=== PATIENT | female | born 1940 | race Caucasian/White ===

== ENCOUNTER 2020-05-20 18:18 | Emergency (ER) | payer OTHER ==
--- NOTE | 2020-05-20 18:58 | RAD REPORT ---
EXAM DESCRIPTION: CT - CTHCSPWOC - 05/20/2020 6:48 pm CLINICAL HISTORY: Trauma, head and neck injury. PAIN COMPARISON: Head Brain Wo Cont dated 09/15/2019 TECHNIQUE: Axial 5 mm thick images of the head were obtained. Axial 2 mm thick images of the cervical spine were obtained with sagittal and coronal reconstruction images generated and reviewed. All CT scans are performed using dose optimization technique as appropriate and may include automated exposure control or mA/KV adjustment according to patient size. FINDINGS: CT HEAD WITHOUT CONTRAST: No acute hemorrhage, hydrocephalus or extra-axial collection is identified.Mild generalized brain atr ophy is present with mild periventricular and deep white matter chronic microvascular ischemic change s.No areas of brain edema or midline shift. The paranasal sinuses and mastoids are clear.Mild vertebral atherosclerosis.The calvarium is intact. CT CERVICAL SPINE WITHOUT CONTRAST: No fracture or subluxation.Moderate midcervical degenerative changes.Mild degenerative levoscoliosis present. Emphysematous upper lung jones. IMPRESSION: No acute intracranial or cervical spine findings.
--- NOTE | 2020-05-20 19:03 | RAD REPORT ---
EXAM DESCRIPTION: RAD - Hip Left 2 View - 05/20/2020 6:42 pm CLINICAL HISTORY: PAIN Fall, pain COMPARISON: No comparisons FINDINGS: Subcapital fracture is seen of the proximal left femur with mild impaction. No dislocation evident.
--- NOTE | 2020-05-20 19:03 | RAD REPORT ---
EXAM DESCRIPTION: RAD - Pelvis - 05/20/2020 6:42 pm CLINICAL HISTORY: TRAUMA Fall, trauma, pain COMPARISON: Hip Left 2 View dated 05/20/2020 FINDINGS: Subcapital fracture is seen of the proximal left femur with mild impaction. No dislocation .
[2020-05-20 19:44] LABS: Absolute Lymphocytes (CBC) 0.5 K/uL (0.7-4.9); Basophils % 0.5 % (0-1.3); Hematocrit 41.1 % (36.0-45.0); Lymphocytes % 3.5 % (15.3-44.8); RBC Red Blood Cell Count 4.49 M/uL (3.86-4.86)
--- NOTE | 2020-05-20 19:46 | EDPHYS ---
Physician Documentation [facility] Name: Elsa Linton Age: 79 yrs Sex: Female : 1940 Arrival Date: 05/20/2020 Time: 18:24 Bed 13 Private MD: ED Physician Walter Proctor HPI: 05/20 18:58 This 79 yrs old Female presents to ER via EMS with complaints of Fall Injury. kb 19:42 Details of fall: The patient fell from an upright position, while walking. Onset: The kb symptoms/episode began/occurred just prior to arrival. Associated injuries: The patient sustained left hip and left quadriceps, decreased range of motion, painful injury. Severity of symptoms: At their worst the symptoms were moderate, in the emergency department the symptoms are unchanged. The patient has not experienced similar symptoms in the past. The patient has not recently seen a physician. Pt states she walked into her closet, turned and got dizzy which caused her to fall onto left side. Reports pain to left hip. Historical: - Allergies: 18:47 No Known Allergies; ca1 - PMHx: 18:47 COPD; ca1 - Immunization history:: Adult Immunizations up to date, Pneumococcal vaccine is up to date, Flu vaccine is up to date. - Social history:: Smoking status: Patient/guardian denies using tobacco, the patient reports quitting approximately 6 years ago. - Immunization history: Last tetanus immunization: unknown. ROS: 18:54 Constitutional: Negative for fever, chills, and weight loss, Cardiovascular: Negative kb for chest pain, palpitations, and edema, Respiratory: Negative for shortness of breath, cough, wheezing, and pleuritic chest pain, Abdomen/GI: Negative for abdominal pain, nausea, vomiting, diarrhea, and constipation, Back: Negative for injury and pain, Skin: Negative for injury, rash, and discoloration. 18:54 MS/extremity: Positive for injury or acute deformity, decreased range of motion, pain, tenderness, of the left hip and left quadriceps. 18:54 Neuro: Positive for dizziness. Exam: 18:55 Constitutional: This is a well developed, well nourished patient who is awake, alert, kb and in no acute distress. Head/Face: Normocephalic, atraumatic. Chest/axilla: Normal chest wall appearance and motion. Nontender with no deformity. No lesions are appreciated. Cardiovascular: Regular rate and rhythm with a normal S1 and S2. No gallops, murmurs, or rubs. Normal PMI, no JVD. No pulse deficits. Respiratory: Lungs have equal breath sounds bilaterally, clear to auscultation and percussion. No rales, rhonchi or wheezes noted. No increased work of breathing, no retractions or nasal flaring. Abdomen/GI: Soft, non-tender, with normal bowel sounds. No distension or tympany. No guarding or rebound. No evidence of tenderness throughout. Skin: Warm, dry with normal turgor. Normal color with no rashes, no lesions, and no evidence of cellulitis. Neuro: Awake and alert, GCS 15, oriented to person, place, time, and situation. Cranial nerves II-XII grossly intact. Motor strength 5/5 in all extremities. Sensory grossly intact. Cerebellar exam normal. Normal gait. 18:55 Musculoskeletal/extremity: Extremities: grossly normal except: noted in the left hip and left quadriceps: decreased ROM, pain, tenderness, ROM: limited passive range of motion due to pain, in the left hip, Circulation is intact in all extremities. Sensation intact. Weight bearing: is unable to bear weight. 19:35 ECG was reviewed by the Attending Physician. kb Vital Signs: 18:25 BP 137 / 79; Pulse 104; Resp 18 S; Temp 98.4(O); Pulse Ox 100% on 6 lpm NC; Weight ca1 36.29 kg (R); Height 5 ft. 0 in. (152.40 cm) (R); Pain 8/10; 19:30 BP 140 / 76; Pulse 105; Resp 20 S; Pulse Ox 100% on 4 lpm NC; ca1 20:08 BP 149 / 76; Pulse 100; Resp 20 S; Pulse Ox 100% on R/A; ca1 20:40 BP 131 / 68; Pulse 102; Resp 20 S; Pulse Ox 100% on 2 lpm NC; ca1 21:54 BP 116 / 73; Pulse 101; Resp 20 S; Pulse Ox 97% on 2 lpm NC; ca1 18:25 Body Mass Index 15.62 (36.29 kg, 152.40 cm) ca1 Rajat Coma Score: 18:25 Eye Response: spontaneous(4). Verbal Response: oriented(5). Motor Response: obeys ca1 commands(6). Total: 15. 21:56 Eye Response: spontaneous(4). Verbal Response: oriented(5). Motor Response: obeys ca1 commands(6). Total: 15. Trauma Score (Adult): 18:25 Eye Response: spontaneous(1); Verbal Response: oriented(1); Motor Response: obeys ca1 commands(2); Systolic BP: > 89 mm Hg(4); Respiratory Rate: 10 to 29 per min(4); [place] Score: 15; Trauma Score: 12 20:00 Eye Response: spontaneous(1); Verbal Response: oriented(1); Motor Response: obeys ca1 commands(2); Systolic BP: > 89 mm Hg(4); Respiratory Rate: 10 to 29 per min(4); [place] Score: 15; Trauma Score: 12 MDM: 18:33 Patient medically screened. kb 18:53 Data reviewed: vital signs, nurses notes. Data interpreted: Pulse oximetry: on room air kb is 100 %. Interpretation: normal. Counseling: I had a detailed discussion with the patient and/or guardian regarding: the historical points, exam findings, and any diagnostic results supporting the discharge/admit diagnosis, radiology results, the need to transfer to another facility, [facility] does not immediately have the required specialist. 19:43 ED course: Dr Bailey accepted pt to [facility] without conference. . kb 05/20 18:31 Order name: Basic Metabolic Panel kb 05/20 18:31 Order name: CBC with Diff kb 05/20 18:31 Order name: Ckmb kb 05/20 18:31 Order name: CPK kb 05/20 18:31 Order name: Hepatic Function kb 05/20 18:31 Order name: Lipase kb 05/20 18:31 Order name: Pelvis XRAY; Complete Time: 19:14 kb 05/20 18:31 Order name: Hip Left 2 View XRAY; Complete Time: 19:14 kb 05/20 18:31 Order name: CT Head C Spine; Complete Time: 19:14 kb 05/20 18:31 Order name: Magnesium kb 05/20 18:31 Order name: Protime (+inr) kb 05/20 18:31 Order name: Ptt, Activated kb 05/20 18:31 Order name: Troponin (emerg Dept Use Only) kb 05/20 18:31 Order name: EKG; Complete Time: 18:33 kb 05/20 18: Order name: Cardiac monitoring; Complete Time: 19:38 kb 05/20 18:31 Order name: EKG - Nurse/Tech; Complete Time: 19:38 kb 05/20 18:31 Order name: IV Saline Lock; Complete Time: 19:25 kb 05/20 18:31 Order name: Labs collected and sent; Complete Time: 19:25 kb 05/20 18: Order name: NPO; Complete Time: 19:25 kb 05/20 18: Order name: O2 Per Protocol; Complete Time: 19:25 kb 05/20 18: Order name: O2 Sat Monitoring; Complete Time: 19:25 kb EC:35 Rate is 105 beats/min. Rhythm is regular. QRS [place] is Normal. SC interval is normal at kb 154 msec. QRS interval is normal at 78 msec. QT interval is normal at 328 msec. Administered Medications: 19:55 Drug: Zofran (Ondansetron) 4 mg Route: IVP; Site: left antecubital; ca1 21:53 Follow up: Response: No adverse reaction; Nausea is decreased ca1 19:59 Drug: fentaNYL (PF) 25 mcg {Note: rass 0.} Route: IVP; Site: left antecubital; ca1 21:54 Follow up: Response: No adverse reaction; Pain is decreased; RASS: Alert and Calm (0) ca1 21:53 Drug: fentaNYL (PF) 25 mcg {Note: rass 0.} Route: IVP; Site: left antecubital; ca1 21:54 Follow up: Response: No adverse reaction ca1 Disposition: 05/21 14:35 Co-signature as Attending Physician, Walter Proctor MD I agree with the assessment and kdr plan of care. Disposition: 05/20/20 19:46 Transfer ordered to [facility]. Diagnosis are Proximal Femur Fracture, Fall on same level from slipping, tripping and stumbling, Dizziness and giddiness. - Reason for transfer: Higher level of care. - Accepting physician is Dr Bailey. - Condition is Stable. - Problem is new. - Symptoms are unchanged. Signatures: Dispatcher [employer] EDNY Destini Motley, CASTING INSPECTOR-C CASTING INSPECTOR-CkWalter Dickinson MD MD kdr Acob, Cheryl, RN RN ca1 Corrections: (The following items were deleted from the chart) 05/20 21:56 19:46 05/20/2020 19:46 Transfer ordered to [facility]. Diagnosis is ca1 Proximal Femur Fracture; Fall on same level from slipping, tripping and stumbling; Dizziness and giddiness. Reason for transfer: Higher level of care. Accepting physician is Dr Bailey. Condition is Stable. Problem is new. Symptoms are unchanged. kb
--- NOTE | 2020-05-20 19:46 | ER ---
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 Reported a ca1 fall, c/o pain on elliott. thighs. Upon arrival on scene pt SPO2 at 82% at 2LPM, increased to 90% at 6LPM. Pt reports hasn't used prescribed O2 for a while. Coronavirus screen: Client denies travel out of the [place] in the last 14 days. At this time, the client does not indicate any symptoms associated with coronavirus-19. Ebola Screen: Patient negative for fever greater than or equal to 101.5 degrees Fahrenheit, and additional compatible Ebola Virus Disease symptoms Patient denies exposure to infectious person. Patient denies travel to an Ebola-affected area in the 21 days before illness onset. No symptoms or risks identified at this time. Initial Sepsis Screen: Does the patient meet any 2 criteria? No. Patient's initial sepsis screen is negative. Does the patient have a suspected source of infection? No. Patient's initial sepsis screen is negative. Risk Assessment: Do you want to hurt yourself or someone else? Patient reports no desire to harm self or others. Onset of symptoms was May 20, 2020. 18:25 Method Of Arrival: EMS: [facility] ca1 18:25 Acuity: BRET 2 ca1 18:25 Mechanism of Injury: Fall from standing position. ca1 18:25 Care prior to arrival: None. Trauma event details: Injury occurred in the county [place] [address], Injury occurred: at home. Injury occurred: May 20, 2020. Triage Assessment: 18:47 General: Appears in no apparent distress. comfortable, Behavior is calm, cooperative, ca1 appropriate for age. Pain: Complains of pain in left quadriceps Pain currently is 8 out of 10 on a pain scale. EENT: No signs and/or symptoms were reported regarding the EENT system. Neuro: Level of Consciousness is awake, alert, obeys commands, Oriented to person, place, time, situation. Cardiovascular: Heart tones S1 S2 present Capillary refill < 3 seconds Patient's skin is warm and dry. Respiratory: Airway is patent Respiratory effort is even, unlabored, Respiratory pattern is regular, symmetrical, Breath sounds are clear bilaterally. GI: Abdomen is flat, non-distended, Bowel sounds present X 4 quads. Abd is soft and non tender X 4 quads. : No signs and/or symptoms were reported regarding the genitourinary system. Derm: Skin is intact, is healthy with good turgor, Skin is pink, warm \T\ dry. Musculoskeletal: Circulation, motion, and sensation intact. Capillary refill < 3 seconds. Trauma Activation: Alert Physician: ED Physician; Name: ; Notified At: ; Arrived At: Physician: General Surgeon; Name: ; Notified At: ; Arrived At: Physician: Radiology; Name: ; Notified At: ; Arrived At: Physician: Respiratory; Name: ; Notified At: ; Arrived At: Physician: Lab; Name: ; Notified At: ; Arrived At: Historical: - Allergies: 18:47 No Known Allergies; ca1 - PMHx: 18:47 COPD; ca1 - Immunization history:: Adult Immunizations up to date, Pneumococcal vaccine is up to date, Flu vaccine is up to date. - Social history:: Smoking status: Patient/guardian denies using tobacco, the patient reports quitting approximately 6 years ago. - Immunization history: Last tetanus immunization: unknown. Screenin:48 Abuse screen: Denies threats or abuse. Denies injuries from another. Nutritional ca1 screening: No deficits noted. Tuberculosis screening: No symptoms or risk factors identified. Fall Risk Fall in past 12 months (25 points). IV access (20 points). Ambulatory Aid- Crutches/Cane/Walker (15 pts). Total Wheeler Fall Scale indicates High Risk Score (45 or more points). Fall prevention measures have been instituted. Side Rails Up X 2 Family Present and informed to notify staff if the need to leave the bedside As available patient and family educated on Fall Prevention Program and Strategies. Primary Survey: 18:25 NO uncontrolled hemorrhage observed. A: The patient is alert. Breathing/Chest: ca1 Respiratory pattern: regular, Respiratory effort: spontaneous, unlabored, Chest inspection: symmetrical rise and fall of the chest. Circulation: Cardiac rhythm: sinus rhythm Heart tones present. Pulses: palpable bilateral radial, brachial, femoral, popliteal, posterior tibial and and dorsalis pedis arteries.. Skin color: pink, Skin temperature: warm, dry. Disability Alert. Exposure/Environment: All clothing and personal items were removed. Forensic evidence collection is not deemed to be indicated at this time. Items placed in patient belonging bag. There is no evidence of uncontrolled external bleeding. No obvious injuries are noted at this time. A warming method has been applied: A warm blanket has been provided to the patient. 19:25 Reassessment Airway Airway Patent Breathing/Chest Respiratory pattern Regular ca1 Respiratory effort Spontaneous Unlabored Breath sounds Clear Chest inspection Symmetrical Circulation Heart rhythm Sinus rhythm Heart tones Present Pulses Palpable Color [place] Temperature Warm Dry Disability Alert. Assessment: 18:48 Reassessment: See triage notes. ca1 19:48 Reassessment: Patient appears in no apparent distress at this time. Patient and/or ca1 family updated on plan of care and expected duration. Pain level reassessed. Patient is alert, oriented x 3, equal unlabored respirations, skin warm/dry/pink. 20:12 Reassessment: Calling [facility] for report. On hold for 5 minutes now. ca1 20:21 Reassessment: Called report to Vaishali Chase RN. ca1 20:40 Reassessment: Patient appears in no apparent distress at this time. No changes from ca1 previously documented assessment. Patient and/or family updated on plan of care and expected duration. Pain level reassessed. 21:54 Reassessment: Patient appears in no apparent distress at this time. Patient is alert, ca1 oriented x 3, equal unlabored respirations, skin warm/dry/pink. Vital Signs: 18:25 BP 137 / 79; Pulse 104; Resp 18 S; Temp 98.4(O); Pulse Ox 100% on 6 lpm NC; Weight ca1 36.29 kg (R); Height 5 ft. 0 in. (152.40 cm) (R); Pain 8/10; 19:30 BP 140 / 76; Pulse 105; Resp 20 S; Pulse Ox 100% on 4 lpm NC; ca1 20:08 BP 149 / 76; Pulse 100; Resp 20 S; Pulse Ox 100% on R/A; ca1 20:40 BP 131 / 68; Pulse 102; Resp 20 S; Pulse Ox 100% on 2 lpm NC; ca1 21:54 BP 116 / 73; Pulse 101; Resp 20 S; Pulse Ox 97% on 2 lpm NC; ca1 18:25 Body Mass Index 15.62 (36.29 kg, 152.40 cm) ca1 [place] Coma Score: 18:25 Eye Response: spontaneous(4). Verbal Response: oriented(5). Motor Response: obeys ca1 commands(6). Total: 15. 21:56 Eye Response: spontaneous(4). Verbal Response: oriented(5). Motor Response: obeys ca1 commands(6). Total: 15. Trauma Score (Adult): 18:25 Eye Response: spontaneous(1); Verbal Response: oriented(1); Motor Response: obeys ca1 commands(2); Systolic BP: > 89 mm Hg(4); Respiratory Rate: 10 to 29 per min(4); [place] Score: 15; Trauma Score: 12 20:00 Eye Response: spontaneous(1); Verbal Response: oriented(1); Motor Response: obeys ca1 commands(2); Systolic BP: > 89 mm Hg(4); Respiratory Rate: 10 to 29 per min(4); Rajat Score: 15; Trauma Score: 12 ED Course: 18:24 Patient arrived in ED. ca1 18:25 Oxygen administration via nasal cannula \T\ 4L/min Response to oxygen therapy: symptoms ca1 improved. 18:25 Thermoregulation: warm blanket given to patient. ca1 18:33 Destini Motley FNP-C [facility]. kb 18:33 Walter Proctor MD is Attending Physician. kb 18:39 Dannielle Moeller, YOLANDA is Primary Nurse. ca1 18:42 Pelvis XRAY In Process Unspecified. EDMS 18:42 Hip Left 2 View XRAY In Process Unspecified. EDMS 18:47 Triage completed. ca1 18:47 Arm band placed on right wrist. ca1 18:48 CT Head C Spine In Process Unspecified. EDMS 18:48 Patient has correct armband on for positive identification. Placed in gown. Bed in low ca1 position. Call light in reach. Side rails up X2. Pulse ox on. NIBP on. Warm blanket given. 19:17 Initiated transfer to [facility]. Spoke with Sapphire Garcia. ar5 19:21 No provider procedures requiring assistance completed. Initial lab(s) drawn, by me, ca1 sent to lab. Inserted saline lock: 22 gauge in left antecubital area, using aseptic technique. Blood collected. 19:43 Acceptance without - consult. Acceptance given by Sapphire Garcia. Accepting Dr. devorah Bailey ER physician. Pt. going to [facility]. Call report to [phone]. 20:25 [facility] will be here to transport pt. in 1 hour to an hour and a half. ar5 20:35 Rajesh from [facility] called and stated they will be delayed due to being on another ar5 call. 20:40 Called [facility] to transport pt., EMS will be here in 2 to 2 and a half hours. ar5 20:50 per Sofía from [facility]. They can take the pt. as soon as the other truck gets ar5 back into the city in about 1 hour to an hour and a half. 21:00 Cancelled [facility]. ar5 21:55 Patient transferred, IV remains in place. ca1 Administered Medications: 19:55 Drug: Zofran (Ondansetron) 4 mg Route: IVP; Site: left antecubital; ca1 21:53 Follow up: Response: No adverse reaction; Nausea is decreased ca1 19:59 Drug: fentaNYL (PF) 25 mcg {Note: rass 0.} Route: IVP; Site: left antecubital; ca1 21:54 Follow up: Response: No adverse reaction; Pain is decreased; RASS: Alert and Calm (0) ca1 21:53 Drug: fentaNYL (PF) 25 mcg {Note: rass 0.} Route: IVP; Site: left antecubital; ca1 21:54 Follow up: Response: No adverse reaction ca1 Intake: 18:25 PO: 0ml; Total: 0ml. ca1 Output: 18:25 Urine: 0ml; Total: 0ml. ca1 Outcome: 19:46 ER care complete, transfer ordered by MD. keller 21:55 Patient's length of stay in the Emergency Department was greater than 2 hours. ca1 transportPatient's length of stay extended due to 21:55 Transferred by ground EMS to [facility], Transfer form completed. X-rays sent ca1 w/ patient. 21:55 Condition: stable 21:55 Instructed on the need for transfer. 21:56 Patient left the ED. 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 Reported a fall, c/o pain on elliott. thighs. Upon arrival on scene pt SPO2 at 82% at 2LPM, increased to 90% at 6LPM. Pt reports hasn't used prescribed O2 for a while. 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 Reported a fall, c/o pain on elliott. thighs. Upon arrival on scene pt SPO2 at 82% at 2LPM, increased to 90% at 6LPM. Pt reports hasn't used prescribed O2 for a while. Denies LOC. Denies hitting head ca1 20:06 18:25 Patient maintains SpO2 saturation greater than 95% on room air. ca1 ca1 20:07 18:25 Pulse 104bpm; Resp 18bpm; Spontaneous; Pulse Ox 100% 6 lpm Nasal Cannula; Temp ca1 98.4F Oral; 36.29 kg Reported; Height 5 ft. 0 in. Reported; BMI: 15.6; Pain 8/10; ca1 20:30 19:43 Acceptance without - consult. Acceptance given by Sapphire Garcia. ar[address] Vilma Bailey physician. Call report to [phone] devorah
[2020-05-20 20:05] LABS: ALT/SGPT 22 U/L (12-78); AST/SGOT 28 U/L (15-37); Albumin 3.4 g/dL (3.4-5.0); Alkaline Phosphatase 93 U/L (45-117); BUN Blood Urea Nitrogen 32 mg/dL (7-18); Bicarbonate 28 mmol/L (21-32); Bilirubin Direct 0.2 mg/dL (0-0.2); Bilirubin Total 1.1 mg/dL (0.2-1.0); CKMB Creatine Kinase MB < 1.0 ng/mL (0.3-3.6); Creatine Phosphokinase 61 U/L (26-192); Glucose Level 125 mg/dL (74-106); Lipase 96 U/L (73-393); Magnesium 2.2 mg/dL (1.8-2.4); Potassium 4.6 mmol/L (3.5-5.1); Protein, Total 7.8 g/dL (6.4-8.2); Sodium Level 138 mmol/L (136-145); Troponin (Emerg Dept Use Only) < 0.02 ng/mL (0.0-0.045)
[2020-05-20] MEDS ORDERED: FENTANYL CITR 100 MCG/2 ML ONE (20:09)
[2020-05-20] MEDS ORDERED: ONDANSETRON 4 MG/2 ML VIAL ONE (20:09)
[2020-05-20 22:31] VITALS: TEMP 98.4
[2020-05-20 22:38] VITALS: BP 116/73; O2SAT 97
--- NOTE | 2020-05-22 09:35 | EKG ---
Test Date: 2020-05-20 Test Time: 19:34:04 Projection Printer: RONNIE MEASUREMENT RESULTS: Intervals: Rate: 105 NV: 154 QRSD: 78 QT: 328 QTc: 433 [place]: P: 74 NV: 154 QRS: 96 T: 71 INTERPRETIVE STATEMENTS: Sinus tachycardia Rightward axis Borderline ECG Compared to ECG 05/20/2020 19:33:34 No significant changes Electronically Signed On 05-22-20 09:31:18 CDT by Dong Osorio
--- NOTE | 2020-05-22 09:35 | EKG ---
Test Date: 2020-05-20 Test Time: 19:33:34 Clinic Mgr: RONNIE MEASUREMENT RESULTS: Intervals: Rate: 105 TX: 154 QRSD: 74 QT: 312 QTc: 412 [place]: P: 92 TX: 154 QRS: 91 T: 56 INTERPRETIVE STATEMENTS: Suspect arm lead reversal, interpretation assumes no reversal Sinus tachycardia Rightward axis Pulmonary disease pattern Abnormal ECG No previous ECG available for comparison Electronically Signed On 05-22-20 09:31:19 CDT by Dong Osorio
== END 2020-05-20 21:56 | disposition short-term general hospital (02) ==
LOC: ER 18:18
DX: S72.012A Unspecified intracapsular fracture of left femur, initial encounter for closed fracture (principal); R42 Dizziness and giddiness; W01.0XXA Fall on same level from slipping, tripping and stumbling without subsequent striking against object, initial encounter; Y93.01 Activity, walking, marching and hiking; Y92.008 Other place in unspecified non-institutional (private) residence as the place of occurrence of the external cause
CPT/HCPCS: 93005 ×2; 85025; 80048; 36415; 83735; 82550; 85610; 80076; 85730; 84484; 82553; 83690; 70450; 72125; 72170; 73502; 96375; 96374; 99285; J3010; J2405; G0390